=== PATIENT | male | born 1980 | race Caucasian/White ===

== ENCOUNTER 2016-12-28 07:12 | Emergency (ER) | payer OTHER ==
[2016-12-28] MEDS ORDERED: Lidocaine 2% 20 ML MDV INFILT ONE (07:13)
--- NOTE | 2016-12-28 07:30 | EDM.PDOC ---
ED HPI GENERAL MEDICAL PROBLEM - General Chief Complaint: Upper Extremity Injury/Pain Stated Complaint: LEFT HAND Time Seen by Provider: 12/28/16 07:15 Source of Information: Reports: Patient History Limitations: Reports: No Limitations - History of Present Illness INITIAL COMMENTS - FREE TEXT/NARRATIVE: 36 yo male injured his left hand at work this morning. Thinks he dislocated his finger. Onset: Today Onset Date: 12/28/16 Onset Time: 06:35 Duration: Minutes: Location: Reports: Upper Extremity, Left Quality: Reports: Ache Severity: Moderate Improves with: Reports: Rest Worsens with: Reports: Movement Context: Reports: Trauma Associated Symptoms: Reports: No Other Symptoms Treatments [employer]: Reports: Other (see below) (none) Left 3-Middle finger Pain Score (Numeric/FACES): 8 - Related Data Allergies Allergy/AdvReac Type Severity Reaction Status Date / Time No Known Allergies Allergy Verified 12/28/16 07:21 Home Meds: Home Meds Azithromycin 500 mg PO ASDIRECTED 12/28/16 [History] predniSONE [Prednisone] 10 mg PO DAILY 12/28/16 [History] Review of Systems - Review of Systems Review Of Systems: See Below Constitutional: Reports: No Symptoms Musculoskeletal: Reports: Hand Pain (left) Skin: Reports: No Symptoms Neurological: Reports: No Symptoms ED EXAM, GENERAL - Physical Exam Exam: See Below Exam Limited By: No Limitations General Appearance: Alert, WD/WN, No Apparent Distress Extremities: Other (L hand's long finger is deformed at the MC joint. ) Neurological: Alert, Oriented, CN II-XII Intact, Normal Cognition Psychiatric: Normal Affect, Normal Mood Skin Exam: Warm, Dry, Intact, Normal Color, No Rash Course - Vital Signs Text/Narrative:: hematoma block with 5 ml of 2% lidocaine. Fx reduced with traction and splinted. Sling applied. Last Recorded V/S: Last Vital Signs Temp 36.6 C 12/28/16 07:24 Pulse 61 12/28/16 07:24 Resp 18 12/28/16 07:24 BP 141/86 H 12/28/16 07:24 Pulse Ox 99 12/28/16 07:24 - Orders/Labs/Meds Orders: Active Orders 24 hr Category Date Time Status Hand Comp Min 3V Lt [CR] Stat Exams 12/28/16 07:20 Taken Meds: Medications Discontinued Medications Generic Name Dose Route Start Last Admin Trade Name Elodia PRN Reason Stop Dose Admin Lidocaine HCl 10 ml 12/28/16 07:33 Xylocaine 2% INJECT 12/28/16 07:34 ONETIME ONE - Radiology Interpretation Free Text/Narrative:: L hand [id number] fx of the proximal L long finger Departure - Departure Time of Disposition: 07:49 Disposition: Home, Self-Care 01 Condition: Fair Clinical Impression: Finger fracture, left Qualifiers: Encounter type: initial encounter Finger: middle finger Fracture type: closed Phalanx: proximal Fracture alignment: displaced Qualified Code(s): S62.613A - Displaced fracture of proximal phalanx of left middle finger, initial encounter for closed fracture - Discharge Information Referrals: Raman Ferrer MD [Primary Care Provider] - Forms: ED Department Discharge Additional Instructions: Wear splint and sling for support. Follow up with [facility]. Keep injury elevated especially today. Take ibuprofen and/or acetaminophen as needed for pain relief. - My Orders Last 24 Hours: My Active Orders 12/28/16 07:20 Hand Comp Min 3V Lt [CR] Stat - Assessment/Plan Last 24 Hours: My Active Orders 12/28/16 07:20 Hand Comp Min 3V Lt [CR] Stat
[2016-12-28] MEDS ORDERED: Lidocaine 2% 20 ML MDV INJECT ONE (07:33)
--- NOTE | 2016-12-28 10:47 | CR ---
INDICATION: Injury, caught in roller at work. LEFT HAND: Three views of the left hand revealed a severely comminuted fracture of the proximal metaphysis and shaft extending towards the midshaft of the proximal phalanx of the 3rd left finger. There is marked anterior angulation at the fracture site, as well as lateral angulation of the lateral larger chip fracture fragment. There is also overriding of approximately 2 mm of that fracture fragment distally. No other significant bone or joint abnormality could be identified. IMPRESSION: Comminuted fracture proximal phalanx of the 3rd left finger with severe deformity. MTDD
== END 2016-12-28 08:10 | disposition home or self-care (01) ==
LOC: FB.ED 07:12
DX: S62.613A Displaced fracture of proximal phalanx of left middle finger, initial encounter for closed fracture (principal); Z79.899 Other long term (current) drug therapy; X58.XXXA Exposure to other specified factors, initial encounter; Y99.0 Civilian activity done for income or pay
CPT/HCPCS: 26725; 29105; 73130-LT; 99000; 99283